=== PATIENT | female | born 1985 | race Caucasian/White ===

== ENCOUNTER 2021-06-07 19:24 | Emergency (ER) | payer OTHER, SELFPAY ==
[2021-06-07 19:28] VITALS: BP 146/97; PULSE 96; RESP 20; O2SAT 97; BMI 25.8
[2021-06-07] MEDS: Lidocaine HCl 1 % MPF 5 ML VIAL INFILTRATI (19:54)
--- NOTE | 2021-06-07 20:04 | ED.WOUNDLAC ---
HPI - Wound/Laceration General Chief Complaint: Wound/Laceration Stated Complaint: Finger lac Time Seen by Provider: 06/07/21 19:35 Related Data Allergies Allergy/AdvReac Type Severity Reaction Status Date / Time No Known Allergies Allergy Verified 06/07/21 19:28 PMFSH Social History Social History Advance Directives: No Advance Directives Information Provided: Yes Physical Exam Vital Signs: Vital Signs: Last Vital Signs Pulse 96 06/07/21 19:28 Resp 20 06/07/21 19:28 BP 146/97 H 06/07/21 19:28 Pulse Ox 97 06/07/21 19:28 Body Mass Index 25.8 Discharge Plan Discharge Clinical Impression: Laceration Patient Disposition: Home, Self-Care Instructions: Finger Laceration (ED) Additional Instructions: Local care as advised Suture removal in 7-10 days Interventions: ED Discharge Assessment Last Done: 06/07/21 19:54 Discharge Date/Time: 06/07/21 19:55
== END 2021-06-07 19:55 | disposition home or self-care (01) ==
PROVIDERS: Emergency Provider Internal Medicine; PCP General Practice
DX: S61.219A Laceration without foreign body of unspecified finger without damage to nail, initial encounter (principal); X58.XXXA Exposure to other specified factors, initial encounter; Y93.9 Activity, unspecified; Y92.9 Unspecified place or not applicable; Y99.9 Unspecified external cause status
CPT/HCPCS: 99283; 99284